=== PATIENT | male | born 1985 | race Caucasian/White ===

== ENCOUNTER 2017-02-24 12:45 | Emergency (ER) | payer SELFPAY ==
[~2017-02-24] VITALS: Ht 170.2 cm; Wt 80.0 kg
[2017-02-24 12:55] VITALS: Ht 170.2 cm; Wt 80.0 kg
[2017-02-24] MEDS ORDERED: IBUPROFEN 800 MG TAB PO ONE (14:00)
--- NOTE | 2017-02-24 14:46 | RADRPT ---
PROCEDURE: XR right shoulder CLINICAL INDICATION: Right shoulder pain after a fall TECHNIQUE: Three views COMPARISON: None available FINDINGS: The soft tissues are unremarkable. Alignment is within normal limits. No evidence of acute fracture or dislocation. Joint spaces are within normal limits. IMPRESSION: 1. Unremarkable right shoulder radiograph series. If there is clinical concern of occult fracture, a right shoulder MR or CT scan may be performed for further analysis. RPTAT: TT Jaja Egan Physician Date Time Electronically viewed and signed by Jaja Egan Physician on 02/24/2017 14:45 JS/
[2017-02-24] MEDS ORDERED: CYCL-319 PO (15:00)
[2017-02-24] MEDS ORDERED: IBUP-1542 PO (15:00)
--- NOTE | 2017-02-24 15:12 | ERD ---
ER Documentation Chief Complaint Chief Complaint pt bib self with c/o fall yesterday from ladder,R arm pain, L rib pain, -KO HPI 31-year-old male complaining of right upper extremity pain after a fall yesterday. Patient stated that he fell off a 6-foot ladder at work. He grabbed something on the wall with the right hand while he was falling down. He landed on his right elbow on the concrete floor. Patient is complaining of pain throughout his upper extremity. Patient states that he also has pain in his right lower back today. Described pain as achy, as if he was exercising hard yesterday. Patient is able to walk difficulty. Denies hitting his head in the fall. Denies saddle paresthesia. Denies bowel or bladder dysfunction. ROS All systems reviewed and are negative except as per history of present illness. Medications Home Meds Active Scripts Cyclobenzaprine Hcl* (Cyclobenzaprine Hcl*) 10 Mg Tablet, 10 MG PO TID, #15 TAB Prov:CELESTE CALHOUN. DRILLING SUPERVISOR 02/24/17 Ibuprofen* (Motrin*) 600 Mg Tab, 600 MG PO Q6H Y for PAIN AND OR ELEVATED TEMP, #30 TAB Prov:CELESTE CALHOUN. DRILLING SUPERVISOR 02/24/17 Allergies Allergies: Coded Allergies: No Known Allergy (Unverified , 02/24/17) PMhx/Soc Medical and Surgical Hx: pt denies Medical Hx, pt denies Surgical Hx Hx Alcohol Use: Yes (social drinker) Hx Substance Use: No Hx Tobacco Use: No Physical Exam Vitals Vital Signs Date Time Temp Pulse Resp B/P Pulse Ox O2 Delivery O2 Flow Rate FiO2 02/24/17 12:55 98.3 72 18 124/65 99 Physical Exam General: Patient is well-developed. Awake, alert, and conversant, in no apparent distress Skin: Warm and dry Head: Normocephalic, atraumatic without palpable deformities Eyes: Pupils equal, round, and reactive to light. Extraocular movements intact. No periorbital ecchymosis or step-off Neck: No midline point tenderness, step-off, or deformity to firm palpation of posterior cervical spine. Trachea midline. Carotids equal. No masses. No JVD. Full range of motion of the neck without limitation or pain Chest: No surface trauma. Nontender without crepitus or deformity. No palpable subcutaneous air. Lungs have good tidal volume, lungs clear to auscultate bilaterally Heart: Regular rate and rhythm. No murmur, rub, or gallop Back: No contusions, ecchymosis, or abrasions are noted. Midline nontender without step-off or deformity to firm midline palpation. No CVA tenderness or flank ecchymosis. Muscle spasm noted in the right lower lumbar region. Extremities: A linear abrasion noted on the right forearm, approximately 5 cm long. Patient has slight limited extension on the right shoulder due to pain , right shoulder tender to palpation. Range of motion normal on all other joints. Good strength in all extremities. Sensation to light touch intact. All peripheral pulses are intact and equal Neuro: Alert and oriented 4, GCS 15, cranial nerves II through XII intact. Motor and sensory exam is nonfocal. Reflexes are symmetric Results 24 hrs Current Medications Medications (Trade) Dose Ordered Sig/Fidelia Route PRN Reason Start Time Stop Time Status Last Admin Dose Admin Ibuprofen (Motrin) 800 mg ONCE ONCE PO 02/24/17 14:00 02/24/17 14:01 DC 02/24/17 14:26 PROCEDURE: XR right shoulder CLINICAL INDICATION: Right shoulder pain after a fall TECHNIQUE: Three views COMPARISON: None available FINDINGS: The soft tissues are unremarkable. Alignment is within normal limits. No evidence of acute fracture or dislocation. Joint spaces are within normal limits. IMPRESSION: 1. Unremarkable right shoulder radiograph series. If there is clinical concern of occult fracture, a right shoulder MR or CT scan may be performed for further analysis. RPTAT: TT Physician Estefania Date Time Electronically viewed and signed by Physician Estefania on 2016 14:45 JS/ CC: CELESTE CALHOUN DRILLING SUPERVISOR Procedures/MDM Well-appearing 31-year-old male present ED was right upper extremity and right lower back pain after falling off a ladder yesterday. X-ray of the right shoulder was obtained, which was negative. I have low suspicion for fractures or dislocations of his extremity. Patient does not have any midline spinal tenderness. I doubt spinal fracture, subluxation, or disc herniation. I doubt spinal epidural abscess, cauda equina syndrome. Likely patient's pain is due to contusion and muscle spasm. Patient appears well, stable for discharge and outpatient management. Medical decision making shared with patient and family. Education provided to patient and family. Patient and family expressed understanding of the plan. Medications on discharge: Ibuprofen, Flexeril. Follow-up: Primary care provider in 2-3 days or return to ED if worse. Disclaimer: Inadvertent spelling and grammatical errors are likely due to EHR/ dictation software use and do not reflect on the overall quality of patient care. Also, please note that the electronic time recorded on this note does not necessarily reflect the actual time of the patient encounter. Departure Diagnosis: Primary Impression: Fall from ladder Encounter type: initial encounter Qualified Code: W11.XXXA - Fall from ladder, initial encounter Additional Impressions: Right shoulder pain Chronicity: acute Qualified Code: M25.511 - Acute pain of right shoulder Abrasion of right forearm Encounter type: initial encounter Qualified Code: S50.811A - Abrasion of right forearm, initial encounter Condition: Stable Patient Instructions: Preventing Falls on the Job, Abrasion [facility] Usted se wei hecho un examen mdico de control que le indica que no est en morelia condicin que requiera tratamiento urgente en el Departamento de Emergencia. Un estudio ms profundo y el tratamiento de khan condicin pueden esperar sin ningn riesgo hasta que usted sea atendida/o en el consultorio de khan mdico o morelia cl tanner. Es responsabilidad suya arreglar morelia ryan para el seguimiento del jessi. MANEJO DE CONDICIONES NO URGENTES EN EL FUTURO 1) Si usted tiene un mdico de atencin primaria: Usted debera llamar a khan mdico de atencin primaria antes de venir al departamento de emergencia. Despus de las horas de consultorio, khan doctor o khan asociado/a est disponible por telfono. El mdico o enfermero de beny en el servicio telefnico puede asesorarle por marcy medio para atender el problema, o jessi contrario se puede programar morelia ryan. 2) Si usted no tiene un mdico de atencin primaria: Llame al mdico o clnica de referencia que aparece abajo william las horas de consultorio para hacer morelia ryan para que le vean. CLINICAS: [facility] [id number] [facility] [phone] [facility] [phone] [place] [phone] [facility] [phone] [phone] [address] Additional Instructions: Llame al doctor MAANA y felix morelia RYAN PARA DENTRO DE 2-3 [place].Dgale a la secretaria que nosotros le instruimos hacer esta ryan.Avise o llame si khan condicin se empeora antes de la ryan. Regresa aqui si peor o no mejor. CELESTE CALHOUN NP Feb 24, 2017 15:12
== END 2017-02-24 15:35 | disposition home or self-care (01) ==
LOC: FTE 12:45
DX: S50.811A Abrasion of right forearm, initial encounter (principal); W11.XXXA Fall on and from ladder, initial encounter; Y92.89 Other specified places as the place of occurrence of the external cause

== ENCOUNTER 2017-03-13 18:19 | Emergency (ER) | payer MEDICAID ==
[~2017-03-13] VITALS: Ht 167.6 cm; Wt 80.4 kg
[~2017-03-13 18:19] MED LIST: CYCL-319 PO; IBUP-1542 PO
[2017-03-13 18:33] VITALS: Ht 167.6 cm; Wt 80.4 kg
[2017-03-13] MEDS ORDERED: LIDOCAINE 2% (MDV) 20 ML INJ INJ ONE (19:30)
[2017-03-13] MEDS ORDERED: DIPHTH/TET/ACEL PERTUSS (ADULT) 0.5 ML VIAL IM ONE (19:30)
[2017-03-13] MEDS ORDERED: CEPH500C PO (20:15)
--- NOTE | 2017-03-13 20:22 | ERD ---
ER Documentation Chief Complaint Chief Complaint c/o left index finger lac. Cut by knife x 20 min ago. HPI This is a 31-year-old male that presents to the ER for cutting his left index finger with a knife about an hour ago. Bleeding was controlled before arriving to the ER patient does not complain of any pain. He does not know when his last tetanus shot was. Denies any numbness or tingling to his finger. ROS 12 point review of systems was done, all negative except per HPI. Medications Home Meds Active Scripts Cephalexin* (Cephalexin*) 500 Mg Capsule, 500 MG PO BID for 7 Days, #14 CAP Prov:DEVANBHAVANA Lay 03/13/17 Cyclobenzaprine Hcl* (Cyclobenzaprine Hcl*) 10 Mg Tablet, 10 MG PO TID, #15 TAB Prov:CELESTE CALHOUN. ELEMENT WINDING MACHINE TENDER 02/24/17 Ibuprofen* (Motrin*) 600 Mg Tab, 600 MG PO Q6H Y for PAIN AND OR ELEVATED TEMP, #30 TAB Prov:CELESTE CALHOUN. ELEMENT WINDING MACHINE TENDER 02/24/17 Allergies Allergies: Coded Allergies: No Known Allergy (Unverified , 02/24/17) PMhx/Soc Medical and Surgical Hx: pt denies Medical Hx, pt denies Surgical Hx Hx Alcohol Use: Yes (occassional ) Hx Substance Use: No Hx Tobacco Use: No Smoking Status: Never smoker Physical Exam Vitals Vital Signs Date Time Temp Pulse Resp B/P Pulse Ox O2 Delivery O2 Flow Rate FiO2 03/13/17 18:33 97.8 72 18 114/75 99 Physical Exam GENERAL: The patient is well developed and appropriate for usual state of health , in no apparent distress. HEENT: Atraumatic. Conjunctivae are pink. Pupils equal, round, and reactive to light. Extraocular muscles are grossly intact. Bilateral tympanic membranes are clear with no evidence of erythema, effusion or dulling of the light reflex. The oropharynx is clear with no erythema or exudates. NECK: C-spine is soft and supple. There is no cervical lymphadenopathy. CHEST: Clear to auscultation bilaterally. There are no rales, wheezes or rhonchi. HEART: Regular rate and rhythm. No murmurs, clicks, rubs or gallops. ABDOMEN: Soft, nontender and nondistended. Good bowel sounds. No rebound or guarding. No gross peritonitis. No gross organomegaly or masses. No Lara sign or McBurney point tenderness. BACK: No midline or flank tenderness. EXTREMITIES: Left hand: there is a linear vertical laceration through the 2nd digit that is about 5cm in length. FDS+ FDP are intact. radial ulnar and median nerves are intact NEURO: Alert and oriented. Results 24 hrs Current Medications Medications (Trade) Dose Ordered Sig/Fidelia Route PRN Reason Start Time Stop Time Status Last Admin Dose Admin Diphtheria/ Tetanus/Acell Pertussis (Adacel) 0.5 ml ONCE ONCE IM 03/13/17 19:30 03/13/17 19:31 DC 03/13/17 19:32 Lidocaine (Xylocaine 2% (Mdv) 20 ml) 20 ml ONCE ONCE INJ 03/13/17 19:30 03/13/17 19:31 DC Procedures/MDM Laceration Repair by me: Anesthesia: 1% lidocaine locally Location: left index finger Tendon/Joint/Nerves: No injury Foreign body: None detected after copious irrigation and exploration Technique: 7 3'0 pSimple Interrupted Sutures Complexity: No subcutaneous sutures/mucosal repair/ edge excision Post Closure Length: 5 cm Patient's bleeding was easily controlled in the department and there is no indication of anemia. Tdap shot was given in the ER with no complications No evidence of compartment syndrome, neurologic injury, vascular injury, open joint, tendon laceration, or foreign body. Patient is appropriate for outpatient follow up. 48 hour wound check. Scar minimization instructions given. Patient will be sent home with keflex. Departure Diagnosis: Primary Impression: Laceration Condition: Stable Patient Instructions: Laceration, Hand Additional Instructions: Regrese a estas instalaciones dentro de DOS CEBALLOS para un examen de seguimiento.Regrese antes si khan condicin se empeora. BHAVANA HARTMAN Mar 13, 2017 20:22
== END 2017-03-13 20:26 | disposition home or self-care (01) ==
LOC: FTE 18:19
DX: S61.211A Laceration without foreign body of left index finger without damage to nail, initial encounter (principal); W26.0XXA Contact with knife, initial encounter; Y92.9 Unspecified place or not applicable; Z23 Encounter for immunization
CPT/HCPCS: 12002; 90471; 90715; Z7502; Z7610

== ENCOUNTER 2017-03-15 14:48 | Emergency (ER) | payer MEDICAID ==
[~2017-03-15] VITALS: Wt 81.4 kg
[~2017-03-15 14:48] MED LIST changes: +CEPH500C PO
--- NOTE | 2017-03-15 17:29 | ERD ---
ER Documentation Chief Complaint Chief Complaint WOUND RECHECK ON LEFT INDEX HPI Patient is here for 2 day wound check for laceration to his left second digit. He is taking Keflex as prescribed. No numbness or tingling. Pain is improving. No fever. No bleeding or drainage. ROS All systems reviewed and are negative except as per history of present illness. Medications Home Meds Active Scripts Cephalexin* (Cephalexin*) 500 Mg Capsule, 500 MG PO BID for 7 Days, #14 CAP Prov:BHAVANA HARTMAN 03/13/17 Cyclobenzaprine Hcl* (Cyclobenzaprine Hcl*) 10 Mg Tablet, 10 MG PO TID, #15 TAB Prov:CELESTE CALHOUN. RESEARCH MANAGER 02/24/17 Ibuprofen* (Motrin*) 600 Mg Tab, 600 MG PO Q6H Y for PAIN AND OR ELEVATED TEMP, #30 TAB Prov:CELESTE CALHOUN. RESEARCH MANAGER 02/24/17 Allergies Allergies: Coded Allergies: No Known Allergy (Unverified , 02/24/17) PMhx/Soc Hx Alcohol Use: Yes (occassional ) Hx Substance Use: No Hx Tobacco Use: No FmHx Family History: No diabetes Physical Exam Vitals Vital Signs Date Time Temp Pulse Resp B/P Pulse Ox O2 Delivery O2 Flow Rate FiO2 03/15/17 15:03 97.9 69 18 151/67 98 Physical Exam Const: [] Head: Atraumatic Eyes: Normal Conjunctiva ENT: Normal External Ears, Nose and Mouth. Neck: Full range of motion..~ No meningismus. Resp: Clear to auscultation bilaterally Cardio: Regular rate and rhythm, no murmurs Abd: Soft, non tender, non distended. Normal bowel sounds Skin: Healing laceration left second digit with sutures in place, no surrounding erythema or edema Procedures/MDM Patient is here for wound check. His wound is healing appropriately without any evidence of infection. Wound was probably redressed and bandaged to continue taking antibiotics as prescribed. Patient counseled regarding my diagnostic impression and care plan. Prior to discharge all questions answered. Pt agrees with treatment plan and understands strict return precautions. Pt is instructed to follow up with primary care provider within 24-48 hours. Precautionary instructions provided including instructions to return to the ER if not improving or for any worsening or changing symptoms or concerns. Departure Diagnosis: Primary Impression: Encounter for wound re-check Condition: Stable MCQUEEN,ALVINA PA-C Mar 15, 2017 17:29
== END 2017-03-15 18:14 | disposition home or self-care (01) ==
LOC: FTE 14:48
DX: Z48.01 Encounter for change or removal of surgical wound dressing (principal)
CPT/HCPCS: 99281

== ENCOUNTER 2017-06-24 11:38 | Emergency (ER) | END 2017-06-24 14:34 | disposition home or self-care (01) ==